=== PATIENT | female | born 1975 | race Caucasian/White ===

== ENCOUNTER 2017-10-16 07:24 | Outpatient (CLI) | payer OTHER ==
--- NOTE | 2017-10-16 13:09 | NM ---
HEPATOBILIARY SCAN: Date: 10/16/17 HISTORY: Epigastric abdominal pain. TECHNIQUE: A hepatobiliary scan was performed after administration of 5.2 mCi of technetium-99m mebrofenin. FINDINGS: Prompt uptake of the radiopharmaceutical by the liver is seen. No photopenic liver lesions are seen. Biliary and gallbladder activity is seen within 10 minutes. Bowel activity is seen within the 15 david christ. A gallbladder ejection fraction was estimated after administration of 8 oz of Ensure orally. This was estimated at 97%. IMPRESSION: Normal hepatobiliary scan. POS: [facility]
== END 2017-10-16 07:25 | disposition home or self-care (01) ==
LOC: NM 07:24
PROVIDERS: ATTEND Family Medicine
DX: R10.13 Epigastric pain (principal)
CPT/HCPCS: 78227; A9537

== ENCOUNTER 2018-01-17 13:14 | Outpatient (CLI) | payer OTHER ==
--- NOTE | 2018-01-17 14:42 | CT ---
CONTRAST ENHANCED CT IMAGES OF THE ABDOMEN AND PELVIS: History: 42-year-old with left lower quadrant pain extending to back, since yesterday. FINDINGS: The lung bases are unremarkable. No evidence of free intraperitoneal air is seen. The liver, spleen, pancreas, gallbladder, adrenal glands and kidneys are unremarkable. No evidence of periaortic lymphadenopathy is seen. No dilated loops of small bowel seen. There does a ppear to be some thickening of the descending and sigmoid colon. This may represent colitis. There al so appears to be some inflammatory change in the pericolonic fat in the descending colon possibly rep resenting some diverticulitis. No evidence of pericolonic abscess is seen. A normal appendix is visualized. Also noted is a nonobstructing approximately 5 mm lower pole left renal calculus. IMPRESSION: Descending and sigmoid colonic thickening with surrounding inflammatory change. This may represent di verticulitis with some component of colitis. POS: [facility]
[2018-01-17] MEDS ORDERED: Iopamidol 370 76% 100 ML VIAL ONE (16:30)
== END 2018-01-17 13:15 | disposition home or self-care (01) ==
LOC: CT 13:14
PROVIDERS: ATTEND Physician Assistant
DX: R10.32 Left lower quadrant pain (principal); K63.89 Other specified diseases of intestine
CPT/HCPCS: 74177

== ENCOUNTER 2018-09-13 12:49 | Outpatient (CLI) | payer OTHER | END 2018-09-13 12:50 | disposition home or self-care (01) | LOC: BICMAMMO 12:49 | PROVIDERS: ATTEND Obstetrics & Gynecology | DX: Z12.31 Encounter for screening mammogram for malignant neoplasm of breast (principal) | CPT/HCPCS: 77063; 77067 ==

== ENCOUNTER 2019-03-14 11:40 | Emergency (ER) | payer OTHER ==
[2019-03-14] MEDS ORDERED: Dexamethasone 4 mg/ml Vial ONE (13:48)
[2019-03-14] MEDS ORDERED: Famotidine 20 MG TAB ONE (13:48)
[2019-03-14] MEDS ORDERED: diphenhydrAMINE 25 MG CAP ONE (13:48)
[2019-03-14] MEDS ORDERED: Dexamethasone 10 MG/ML VIAL ONE (13:49)
[2019-03-14] MEDS ORDERED: hydrOXYzine 25 MG TAB ONE (14:46)
== END 2019-03-14 17:02 | disposition home or self-care (01) ==
LOC: ERS 11:40
DX: L50.0 Allergic urticaria (principal); F17.200 Nicotine dependence, unspecified, uncomplicated
CPT/HCPCS: 99282; J1100; Q0163

== ENCOUNTER 2019-05-01 15:03 | Outpatient (CLI) | payer OTHER ==
--- NOTE | 2019-05-01 16:30 | MRI ---
EXAM: MRI Brain W WO Con PROVIDED CLINICAL HISTORY: Migraine headache with aura. COMPARISON: 06/18/2009 FINDINGS: No signal abnormalities are seen throughout the brain. No abnormal areas of enhancement are seen afte r the administration of intravenous contrast. The septum pellucidum and third ventricle are in the midline. The ventricular system is normal in size, shape, and position. There is a large mucous retention cyst occupying the entire right maxillary antrum which is larger in size compared to prior exam. There is now opacification of the right sphenoid sinus. There are increased T2-weighted signal intensity foci seen in the posterior nasopharynx also present on prior s tudy in 2008 but increased from that exam but are suggestive of mucous retention cysts. Appropriate flow voids are demonstrated the base of the brain. The orbits and skull base have a normal MRI appearance. IMPRESSION: 1. No acute intracranial abnormalities demonstrated. 2. Large mucus retention cyst right maxillary antrum with sinus disease involving the right sphenoid sinus.
== END 2019-05-01 15:04 | disposition home or self-care (01) ==
LOC: BICMRI 15:03
PROVIDERS: ATTEND Psychiatry & Neurology Neurology
DX: G43.109 Migraine with aura, not intractable, without status migrainosus (principal); J32.3 Chronic sphenoidal sinusitis; J34.1 Cyst and mucocele of nose and nasal sinus
CPT/HCPCS: 70553

== ENCOUNTER 2019-08-14 13:04 | Outpatient (CLI) | payer OTHER ==
--- NOTE | 2019-08-14 14:06 | ULT ---
BILATERAL RENAL ULTRASOUND: HISTORY: Hematuria FINDINGS: The right kidney measures 11.5 cm in length and the left kidney measures 11.1 cm in length. No focal mass or hydronephrosis is noted on either side. The urinary bladder is incompletely distended with a volume of 35 cc. IMPRESSION: Unremarkable exam.
== END 2019-08-14 13:05 | disposition home or self-care (01) ==
LOC: BICULT 13:04
PROVIDERS: ATTEND Specialist
DX: N39.0 Urinary tract infection, site not specified (principal); R31.9 Hematuria, unspecified
CPT/HCPCS: 76770

== ENCOUNTER 2019-09-20 07:57 | Outpatient (CLI) | payer OTHER ==
--- NOTE | 2019-09-20 09:32 | CT ---
Exam: Abdomen CT with and without contrast Pelvic CT with and without contrast HISTORY: Microscopic hematuria. Bilateral flank pain, x3 months. COMPARISON: None TECHNIQUE: Abdomen and pelvic CT is performed with and without contrast following urogram protocol. C oronal reformatted images are submitted for interpretation FINDINGS: Lung bases: Clear Heart: Normal heart size. No significant pericardial fluid Aorta: Normal caliber. No periaortic fat stranding. Liver: Low-attenuation due to hepatic steatosis. No enhancing masses. Spleen: Appropriate enhancement Pancreas: Appropriate enhancement Adrenal glands: Symmetric enhancement Lymph nodes: No gastrohepatic, retrocrural or periportal lymphadenopathy Portal vein: Patent Gallbladder: Unremarkable Kidneys: No hydronephrosis, nephrolithiasis or perinephric fat stranding. Nonobstructing 5 mm calculus in the proximal left ureter. The remainder the left ureter is unremarkable. Unremarkable right ureter. Symmetric enhancement. No enhancing masses. Symmetric excretion into a decompressed intrauterine extra renal collecting system. Mesentery: No mass, nephropathy, free air or free fluid Alimentary canal: Limited evaluation due to lack of oral contrast administration. No evidence of sandoval l obstruction. The ileocecal junction is normal. Normal caliber appendix. Scattered fecal material in a nondistended/nondilated colon. Occasional diverticulum in the left hemicolon. No diverticulitis. CT PELVIS: Surgically absent uterus. No pelvic mass, lymphadenopathy, free air or free fluid. Urinary bladder: Decompressed. No obvious masses or filling defects. No lytic or blastic lesions in the osseous structures IMPRESSION: Not obstructing 5 mm calculus in the proximal left ureter.
[2019-09-20] MEDS ORDERED: Iopamidol-370 76% 500 ML 1 ML ONE (16:11)
== END 2019-09-20 07:58 | disposition home or self-care (01) ==
LOC: BICCT 07:57
PROVIDERS: ATTEND Urology
DX: R31.29 Other microscopic hematuria (principal); N20.1 Calculus of ureter
CPT/HCPCS: 74178; Q9967

== ENCOUNTER 2019-11-12 15:27 | Emergency (ER) | payer OTHER ==
[2019-11-12] MEDS ORDERED: Morphine 4 MG/ML VIAL ONE (16:38)
[2019-11-12] MEDS ORDERED: Ondansetron PF 4 MG/2 ML Vial ONE (16:38)
[2019-11-12 16:43] LABS: #Basophils 0.1 thou/uL (0.0-0.2); #Eosinphils 0.2 thou/uL (0.0-0.7); #Lymphocytes 4.2 thou/uL (1.20-3.40); #Monocytes 0.7 thou/uL (0.11-0.59); #Neutrophils 6.5 thou/uL (1.40-6.50); %Basophils 0.6 % (0.0-1.0); %Eosinophils 1.8 % (0.0-10.0); %Lymphocytes 35.6 % (21.0-51.0); %Monocytes 6.1 % (0.0-10.0); %Neutrophils 55.8 % (42.0-75.0); Hemoglobin 14.4 g/dL (12.0-16.0); Mean Corpuscular HGB CONC 33.1 g/dL (32.0-36.0); Mean Corpuscular Hemoglobin 28.3 pg (27.0-31.0); Mean Corpuscular Volume 85.6 fL (78.0-98.0); Mean Platelet Volume 8.8 fL (7.4-10.4); Platelet Count 323 thou/uL (130-400); RBC Distribution Width 11.4 % (11.5-14.5); Red Blood Cell (RBC) Count 5.07 mill/uL (4.20-5.40); White Blood Cell (WBC) Count 11.7 thou/uL (4.8-10.8)
[2019-11-12 16:50] LABS: Bilirubin Negative (Negative); Blood, Urine 3+ (Negative); Calcium Oxalate Crystals 1+ HPF (None Seen); Clarity Extra Turbid (Clear); Glucose, Urine (Dipstick) Normal (Negative); Leukocyte Negative Leu/uL (Negative); Nitrite Negative (Negative); Protein, Urine (Dipstick) 70 mg/dL (Neg-Trace); RBC/HPF Greater than 50 HPF (0-3); Squamous Epithelial 0-3 HPF (0-3); Urobilinogen Normal mg/dL (Less than 2)
[2019-11-12 16:53] LABS: Bacteria/HPF 1+ HPF (None Seen)
[2019-11-12 17:17] LABS: ALT (SGPT) 43 U/L (8-55); AST (SGOT) 26 U/L (5-34); Albumin 4.5 g/dL (3.5-5.0); Alkaline Phosphatase 130 U/L (40-110); Anion Gap 11 mmol/L (10-20); BUN (Urea Nitrogen) 12 mg/dL (7.0-18.7); Calc. Creatinine Clearance 0 mL/min (70-130); Calcium 9.3 mg/dL (7.8-10.44); Carbon Dioxide 23 mmol/L (22-29); Chloride 111 mmol/L (98-107); Estimated GFR-MDRD 56; Globulin 2.8 g/dL (2.4-3.5); Glucose 115 mg/dL (70-105); Potassium 3.7 mmol/L (3.5-5.1); Protein, Total 7.3 g/dL (6.0-8.3); Sodium 141 mmol/L (136-145)
[2019-11-12 17:33] LABS: Bilirubin, Total 0.4 mg/dL (0.2-1.2)
--- NOTE | 2019-11-12 18:51 | CT ---
NONCONTRAST CT ABDOMEN AND PELVIS: 11/12/19 HISTORY: Microscopic hematuria. Bilateral flank pain for three months. COMPARISON: 09/20/19. FINDINGS: Lack of intravenous contrast limits sensitivity for evaluation of the parenchymal organs. The lung bases are clear. There is decreased attenuation of the liver again seen related to fatty infiltration with minimal fat ty sparring adjacent to the gallbladder. The spleen, pancreas, bilateral adrenal glands demonstrate grossly normal nonenhanced CT appearance. There is a punctate nonobstructing inferior pole right renal calculus. No right ureteral calculus is seen. There is mild left hydronephrosis and hydroureter with an approximately 4 mm calculus seen in the mid left ureter measuring 4 mm. This calculus was seen on the study of 09/20/19 but was noted to be in t he proximal left ureter. Minimal vascular calcifications seen in the abdominal aorta. The urinary bladder is decompressed. There is evidence of hysterectomy. The appendix is normal in caliber. No other interval change IMPRESSION: 1. Interval migration of the 4 to 5 mm left ureteral calculus which is now seen in the mid left ureter. There is now resultant mild left hydronephrosis. 2. Fatty infiltration of the liver. 3. Punctate nonobstructing right renal calculus. POS: [facility]
== END 2019-11-12 18:41 | disposition home or self-care (01) ==
LOC: ERS 15:27
DX: N13.2 Hydronephrosis with renal and ureteral calculous obstruction (principal); I10 Essential (primary) hypertension; F41.9 Anxiety disorder, unspecified; F17.210 Nicotine dependence, cigarettes, uncomplicated; Z79.899 Other long term (current) drug therapy
CPT/HCPCS: 74176; 80053; 81003; 81015; 85025; 87086; 96361; 96374; 96375; J2270; J2405

== ENCOUNTER 2019-11-18 06:15 | Outpatient (CLI) | payer OTHER ==
[2019-11-18 10:50] LABS: Hemoglobin 13.1 g/dL (12.0-16.0); Mean Corpuscular HGB CONC 32.5 g/dL (32.0-36.0); Mean Corpuscular Hemoglobin 28.7 pg (27.0-31.0); Mean Corpuscular Volume 88.5 fL (78.0-98.0); Mean Platelet Volume 8.9 fL (7.4-10.4); Platelet Count 276 thou/uL (130-400); RBC Distribution Width 11.9 % (11.5-14.5); Red Blood Cell (RBC) Count 4.57 mill/uL (4.20-5.40); White Blood Cell (WBC) Count 9.2 thou/uL (4.8-10.8)
[2019-11-18 10:54] LABS: Bacteria/HPF 1+ HPF (None Seen); Bilirubin Negative (Negative); Blood, Urine Trace (Negative); Calcium Oxalate Crystals Rare HPF (None Seen); Clarity Clear (Clear); Glucose, Urine (Dipstick) Normal (Negative); Leukocyte 75 Leu/uL (Negative); Mucous/LPF Rare LPF (<2+); Nitrite Negative (Negative); Protein, Urine (Dipstick) Negative (Neg-Trace); RBC/HPF 0-3 HPF (0-3); Squamous Epithelial 0-3 HPF (0-3); Urobilinogen Normal mg/dL (Less than 2)
[2019-11-18 11:01] LABS: PTT 27.9 SEC (22.9-36.1)
[2019-11-18 11:07] LABS: Prothrombin Time 12.8 SEC (12.0-14.7)
[2019-11-18 11:20] LABS: Anion Gap 10 mmol/L (10-20); BUN (Urea Nitrogen) 12 mg/dL (7.0-18.7); Calc. Creatinine Clearance 0 mL/min (70-130); Calcium 8.9 mg/dL (7.8-10.44); Carbon Dioxide 24 mmol/L (22-29); Chloride 109 mmol/L (98-107); Estimated GFR-MDRD 71; Glucose 100 mg/dL (70-105); Potassium 3.8 mmol/L (3.5-5.1); Sodium 139 mmol/L (136-145)
--- NOTE | 2019-11-20 13:36 | EKG ---
Test Reason : Blood Pressure : / mmHG Vent. Rate : 068 BPM Atrial Rate : 068 BPM P-R Int : 174 ms QRS Dur : 084 ms QT Int : 428 ms P-R-T Axes : 052 -07 031 degrees QTc Int : 455 ms Normal sinus rhythm Anterior infarct , age undetermined Abnormal ECG When compared with ECG of 29-MAR-2015 19:17, Nonspecific T wave abnormality now evident in Anterior leads Confirmed by LEIGH SOLIS (2) on 11/20/2019 1:36:32 PM Referred By: [place] Confirmed By:LEIGH SOLIS
== END 2019-11-18 06:16 | disposition home or self-care (01) ==
LOC: LABBT 06:15
PROVIDERS: ATTEND Urology
DX: Z01.818 Encounter for other preprocedural examination (principal); N20.0 Calculus of kidney; R31.29 Other microscopic hematuria; R39.15 Urgency of urination
CPT/HCPCS: 80048; 81001; 85027; 85610; 85730; 87086; 93005; 93010

== ENCOUNTER 2019-11-21 09:56 | Day surgery (SDC) | payer OTHER ==
[2019-11-18 09:44] VITALS: BMI 32.3
[2019-11-21] MEDS ORDERED: Levofloxacin 500 mg/D5W 100 ml Premix Bag ONE (10:49)
[2019-11-21] MEDS ORDERED: Midazolam HCl 2 mg/2 ml Vial ONE (11:59)
[2019-11-21] MEDS ORDERED: Succinylcholine Chloride 20 MG/ML 10 ml SYRINGE FS ONE (14:40)
[2019-11-21] MEDS ORDERED: Dexamethasone 20 MG/5 ML VIAL ONE (14:40)
[2019-11-21] MEDS ORDERED: Lidocaine 1% PF 5 ML VIAL ONE (14:40)
[2019-11-21] MEDS ORDERED: Ondansetron PF 4 MG/2 ML Vial ONE (14:40)
[2019-11-21] MEDS ORDERED: PROPOFOL 200 MG/20 ML VIAL ONE (14:40)
[2019-11-21] MEDS ORDERED: ePHEDrine/0.9% NaCl/PF SYRINGE 50 mg/10 ml ONE (14:40)
[2019-11-21] MEDS ORDERED: Fentanyl 100 MCG/2 ML VIAL ONE ×2 (15:00→16:12)
[2019-11-21] MEDS ORDERED: Phenazopyridine HCl 97.5 MG TABLET ONE (16:22)
[2019-11-21] MEDS ORDERED: Ketorolac Tromethamine 30 MG/ML VIAL ONE (16:22)
[2019-11-21] MEDS ORDERED: Morphine 2 MG/ML SYRINGE ONE (17:13)
[2019-11-21] MEDS ORDERED: HYDROcodone/Acetaminophen 5/325 mg Tablet ONE (17:28)
--- NOTE | 2019-11-21 17:41 | OP ---
DATE OF PROCEDURE: 11/21/2019 SERVICE: Urology PREOPERATIVE DIAGNOSIS: Left ureteral stone. POSTOPERATIVE DIAGNOSIS: Left ureteral stone. PROCEDURES PERFORMED: 1. Left ureteroscopy. 2. Laser lithotripsy. 3. Basket extraction of stones. 4. Placement of a 6 x 26 double-J stent. INDICATION FOR PROCEDURE: Ms. Johnson is a 44-year-old white female, who presented with left flank pain. She was found to have a 5-mm midureteral stone, which had only progressed some over the course of several weeks from a proximal stone. We elected to proceed with ureteroscopy and laser lithotripsy with all risks and benefits discussed and she has agreed to proceed forward. DESCRIPTION OF PROCEDURE: After identification of armband and verification of consent, the patient was brought back to the operating room, where she underwent general anesthesia with endotracheal intubation. She was then placed in the dorsal lithotomy position and prepped and draped in the usual sterile fashion. After appropriate time-out, a lubricated 22-Kiswahili rigid cystoscope was introduced per urethra into the bladder and attention was turned towards the left ureteral orifice. The bladder did not demonstrate any mucosal abnormalities, stones, trabeculation, or diverticular cellules. Both ureters were in orthotopic location. The left ureter was cannulated with a 0.035 Sensor wire up to the level of renal pelvis. The cystoscope was then removed and the Sensor wire affixed to the drapes as a safety wire. A semi-rigid ureteroscope was then advanced through the left ureteral orifice up to the level of the midureter, where the stone was encountered. A 365-micron laser fiber was then used to fragment the stone into smaller pieces and then a 1.9-Kiswahili ZeroTip Nitinol basket used to grasp the fragments and bring them out for stone analysis. Upon final ureteroscopy, there were no additional stone pieces seen within the ureter. The ureteroscope was then withdrawn and the cystoscope was then back-loaded over the Sensor wire back into the bladder. A 6 x 26 double-J stent with no string was advanced over the Sensor wire up to the level of renal pelvis. The wire was removed, leaving a good curl in the kidney and a good curl in the bladder. The bladder was then emptied and the cystoscope removed. The patient was then awakened, taken to PACU for recovery in stable condition. COMPLICATIONS: None. ESTIMATED BLOOD LOSS: Minimal. RETAINED TUBES AND DRAINS: A 6 x 26 double-J stent on the left. SPECIMENS: Stone for stone analysis. DISPOSITION: The patient will be discharged home and follow up with me in approximately 1 week for a cystoscopy and stent removal. Job ID: [id number]
[2019-11-21] MEDS ORDERED: Ondansetron ODT 4 MG TAB ONE (17:56)
== END 2019-11-21 18:20 | disposition home or self-care (01) ==
LOC: SDC 09:56
PROVIDERS: ATTEND Urology
DX: N20.1 Calculus of ureter (principal); R31.29 Other microscopic hematuria; R39.15 Urgency of urination; Z88.1 Allergy status to other antibiotic agents
CPT/HCPCS: 76000; 82365; 88300; C1769; J1100; J1885; J1956; J2001; J2250; J2270; J2405; J2704; J3010; Q0162

== ENCOUNTER 2020-01-17 14:56 | Outpatient (CLI) | payer OTHER ==
--- NOTE | 2020-01-17 15:25 | ULT ---
Exam: Bilateral renal ultrasound HISTORY: Microscopic hematuria COMPARISON: 08/14/2019 FINDINGS: Right kidney: Normal cortical echotexture. No hydronephrosis. Right kidney measurements: 10.4 x 5.9 x 5.0 cm. Left kidney: Normal cortical echotexture. No hydronephrosis Left kidney measurements 11.1 x 5.0 x 5.0 cm. Urinary bladder: Normal mucosa. 140 mL prevoid volume. IMPRESSION: No hydronephrosis.
== END 2020-01-17 14:57 | disposition home or self-care (01) ==
LOC: ULT 14:56
PROVIDERS: ATTEND Urology
DX: N20.0 Calculus of kidney (principal); R31.29 Other microscopic hematuria
CPT/HCPCS: 76770; 81001